=== PATIENT | male | born 1980 | race Caucasian/White ===

== ENCOUNTER 2018-10-26 19:39 | Emergency (ER) | payer OTHER ==
[2018-10-26] MEDS ORDERED: Ketorolac 10 MG Tab PO ONE (19:40)
--- NOTE | 2018-10-26 20:21 | EDM.PDOC ---
ED HPI GENERAL MEDICAL PROBLEM - General Chief Complaint: Upper Extremity Injury/Pain Stated Complaint: HURT HAND Time Seen by Provider: 10/26/18 20:16 Source of Information: Reports: Patient History Limitations: Reports: No Limitations - History of Present Illness INITIAL COMMENTS - FREE TEXT/NARRATIVE: Nelson is a 38-year-old male who complains of an injury to the left hand. He was closing up to store yesterday when the door closed on his left hand. He complains of throbbing pain,worse with any movement.Tylenol and ibuprofen have not been helpful. Left hand Pain Score (Numeric/FACES): 5 - Related Data Allergies Allergy/AdvReac Type Severity Reaction Status Date / Time No Known Allergies Allergy Verified 10/26/18 19:45 Home Meds: Home Meds NK [No Known Home Meds] 10/26/18 [History] Past Medical History Cardiovascular History: Reports: Other (See Below) Other Cardiovascular History: "concave chest", bradycardia at times Respiratory History: Reports: Asthma Social & Family History - Tobacco Use Smoking Status *Q: Current Every Day Smoker Years of Tobacco use: 17 Packs/Tins Daily: 1.5 - Caffeine Use Caffeine Use: Reports: Energy Drinks, Soda - Recreational Drug Use Recreational Drug Use: No Review of Systems - Review of Systems Review Of Systems: ROS reveals no pertinent complaints other than HPI. ED EXAM, GENERAL - Physical Exam Exam: See Below Free Text/Narrative:: There is moderate swelling of the middle and and pinky left distal phalanges. Severely decreased range of motion,with some ecchymosis of the volar aspect of both. Exam Limited By: No Limitations General Appearance: Alert, WD/WN, No Apparent Distress Course - Vital Signs Last Recorded V/S: Last Vital Signs Temp 97.9 F 10/26/18 19:45 Pulse 86 10/26/18 19:45 Resp 16 10/26/18 19:45 BP 142/89 H 10/26/18 19:45 Pulse Ox 97 10/26/18 19:45 - Orders/Labs/Meds Orders: Active Orders 24 hr Category Date Time Status Hand Comp Min 3V Lt [CR] Stat Exams 10/26/18 19:52 Taken Departure - Departure Time of Disposition: 20:19 Disposition: Home, Self-Care 01 Condition: Good Clinical Impression: Hand injury - Discharge Information Referrals: PCP,None [Primary Care Provider] - - Problem List & Annotations (1) Hand injury SNOMED Code(s): 444753178 Code(s): S69.90XA - UNSP INJURY OF UNSP WRIST, HAND AND FINGER(S), INIT ENCNTR Status: Acute Current Visit: Yes Qualifiers: Encounter type: initial encounter Laterality: left Qualified Code(s): S69.92XA - Unspecified injury of left wrist, hand and finger(s), initial encounter - Problem List Review Problem List Initiated/Reviewed/Updated: Yes - My Orders Last 24 Hours: My Active Orders 10/26/18 19:52 Hand Comp Min 3V Lt [CR] Stat - Assessment/Plan Last 24 Hours: My Active Orders 10/26/18 19:52 Hand Comp Min 3V Lt [CR] Stat Plan: I did an x-ray review the hand and this showed some tuft fracture of the distal phalanx of the pinky. The rest of the joints appeared intact with no dislocation or fracture. I recommended ice rest and I dispensed 10 mg of Toradol 4 times a day when necessary. I further recommended follow-up with the physician on Sunday next week
== END 2018-10-26 20:36 | disposition home or self-care (01) ==
LOC: FB.ED 19:39
DX: S60.032A Contusion of left middle finger without damage to nail, initial encounter (principal); S60.052A Contusion of left little finger without damage to nail, initial encounter; F17.210 Nicotine dependence, cigarettes, uncomplicated; W23.0XXA Caught, crushed, jammed, or pinched between moving objects, initial encounter
CPT/HCPCS: 73130; 99283; A9270

== ENCOUNTER 2020-03-07 23:50 | Emergency (ER) | payer SELFPAY ==
[~2020-03-07 23:50] MED LIST: Sodium Chloride 0.9% 1,000 ML IV SCH
[2020-03-07] MEDS ORDERED: Sodium Chloride 0.9% 10 ML Syringe FLUSH PRN (23:58)
[2020-03-07] MEDS ORDERED: Atropine/Diphenoxylate 0.025-2.5 MG Tab PO ONE (23:59)
--- NOTE | 2020-03-08 01:10 | EDM.PDOC ---
ED HPI GENERAL MEDICAL PROBLEM - General Chief Complaint: Gastrointestinal Problem Stated Complaint: WEAKNESS,DIARRHEA Time Seen by Provider: 03/07/20 23:55 Source of Information: Reports: Patient History Limitations: Reports: No Limitations - History of Present Illness INITIAL COMMENTS - FREE TEXT/NARRATIVE: Patient presented to the ED because of persistent diarrhea which is watery. He at least have 6 watery stools in a day and is felling weak. Denies any nausea or vomiting, no abdominal pain. There is no fever or chills. He works at the [employer] and was tested for Covid 2 days ago which was negative, - Related Data Allergies Allergy/AdvReac Type Severity Reaction Status Date / Time No Known Allergies Allergy Verified 10/26/18 19:45 Home Meds: Home Meds Diphenoxylate HCl/Atropine [Lomotil] 2 tab PO Q6H PRN #30 tablet 03/08/20 [Rx] Past Medical History Cardiovascular History: Reports: Other (See Below) Other Cardiovascular History: "concave chest", bradycardia at times Respiratory History: Reports: Asthma Social & Family History - Tobacco Use Tobacco Use Status *Q: Current Every Day Tobacco User Years of Tobacco use: 15 Packs/Tins Daily: 1 - Caffeine Use Caffeine Use: Reports: Energy Drinks, Soda ED ROS GENERAL - Review of Systems Review Of Systems: See Below Constitutional: Reports: Weakness HEENT: Reports: No Symptoms Respiratory: Reports: No Symptoms Cardiovascular: Reports: No Symptoms Endocrine: Reports: No Symptoms GI/Abdominal: Reports: Diarrhea. Denies: Nausea, Vomiting Musculoskeletal: Reports: No Symptoms, Neck Pain Skin: Reports: No Symptoms Neurological: Reports: No Symptoms Psychiatric: Reports: No Symptoms Hematologic/Lymphatic: Reports: No Symptoms ED EXAM, GI/ABD - Physical Exam Exam: See Below Exam Limited By: No Limitations General Appearance: Alert, No Apparent Distress Ears: Normal External Exam, Normal [place] Nose: Normal Inspection, Normal Mucosa Throat/Mouth: Normal Inspection, Normal Lips, Normal Teeth Head: Atraumatic, Normocephalic Neck: Normal Inspection, Supple, Non-Tender Respiratory/Chest: No Respiratory Distress, Lungs Clear, Normal Breath Sounds Cardiovascular: Normal Peripheral Pulses, Regular Rate, Rhythm, No Edema, No Gallop GI/Abdominal Exam: Soft, Non-Tender, Abnormal Bowel Sounds Skin Exam: Warm, Dry, Intact Course - Vital Signs Text/Narrative:: Labs reviewed with the patient NS 1 L bolus Lomotil 2 tablet po x1 - Orders/Labs/Meds Orders: Active Orders 24 hr Category Date Time Status Sodium Chloride 0.9% [Normal Saline] 1,000 ml Med 03/07/20 23:45 Active IV ASDIRECTED Sodium Chloride 0.9% [Saline Flush] Med 03/07/20 23:58 Active 10 ml FLUSH ASDIRECTED PRN Saline Lock Insert [OM.PC] Routine Oth 03/07/20 23:58 Ordered Medication Orders Sodium Chloride (Normal Saline) 1,000 mls @ 999 mls/hr IV ASDIRECTED YESSENIA Last Admin: 03/08/20 00:15 Dose: 999 mls/hr Documented by: BRENLOR Sodium Chloride (Saline Flush) 10 ml FLUSH ASDIRECTED PRN PRN Reason: Keep Vein Open Labs: Laboratory Tests 03/07/20 03/07/20 Range/Units 00:08 00:08 WBC 8.6 (4.5-12.0) X10-3/uL RBC 4.79 (4.30-5.75) x10(6)uL Hgb 16.0 (13.5-17.8) g/dL Hct 46.2 (30.0-51.3) % MCV 96.5 H (80-96) fL MCH 33.5 (27.7-33.6) pg MCHC 34.7 (32.2-35.4) g/dL RDW 11.7 (11.5-15.5) % Plt Count 244 (125-369) X10(3)uL MPV 7.4 (7.4-10.4) fL Neut % (Auto) 39.5 L (46-82) % Lymph % (Auto) 51.3 H (13-37) % [place] % (Auto) 6.9 (4-12) % Eos % (Auto) 2 (1.0-5.0) % Baso % (Auto) 1 (0-2) % Neut # (Auto) 3.4 (1.6-8.3) # Lymph # (Auto) 4.4 (0.6-5.0) # [place] # (Auto) 0.6 (0.0-1.3) # Eos # (Auto) 0.1 (0.0-0.8) # Baso # (Auto) 0.1 (0.0-0.2) # Sodium 138 (135-145) mmol/L Potassium 4.2 (3.5-5.3) mmol/L Chloride 99 L (100-110) mmol/L Carbon Dioxide 29 (21-32) mmol/L BUN 14 (7-18) mg/dL Creatinine 1.2 (0.70-1.30) mg/dL Est Cr Clr Drug Dosing TNP Estimated GFR (MDRD) > 60 (>60) BUN/Creatinine Ratio 11.7 (9-20) Glucose 184 H (80-116) mg/dL Calcium 9.5 (8.6-10.2) mg/dL Meds: Medications Generic Name Dose Route Start Last Admin Trade Name Freq PRN Reason Stop Dose Admin Sodium Chloride 1,000 mls @ 999 mls/hr 03/07/20 23:45 03/08/20 00:15 Normal Saline IV 999 mls/hr ASDIRECTED YESSENIA Administration Sodium Chloride 10 ml 03/07/20 23:58 Saline Flush FLUSH ASDIRECTED PRN Keep Vein Open Discontinued Medications Generic Name Dose Route Start Last Admin Trade Name Freq PRN Reason Stop Dose Admin Diphenoxylate HCl/Atropine 2 tab 03/07/20 23:59 03/08/20 00:33 Lomotil 0.025-2.5 Mg PO 03/08/20 00:00 2 tab ONETIME ONE Administration Departure - Departure Time of Disposition: 01:15 Disposition: Home, Self-Care 01 Condition: Good Clinical Impression: Gastroenteritis, Dehydration - Discharge Information Prescriptions: Diphenoxylate HCl/Atropine [Lomotil] 2 tab PO Q6H PRN #30 tablet PRN Reason: Diarrhea Referrals: PCP,None [Primary Care Provider] - Additional Instructions: please read discharge instructions on gastroenteritis and dehydration frequent hand washing increase oral fluids-drink at least 2-3 liters of water a day lomotil 2 tablets every 6 hours as needed for diarrhea follow up as needed Sepsis Event Note (ED) - Evaluation Sepsis Screening Result: No Definite Risk - My Orders Last 24 Hours: My Active Orders 03/07/20 23:45 Sodium Chloride 0.9% [Normal Saline] 1,000 ml IV ASDIRECTED 03/07/20 23:58 Sodium Chloride 0.9% [Saline Flush] 10 ml FLUSH ASDIRECTED PRN Saline Lock Insert [OM.PC] Routine - Assessment/Plan Last 24 Hours: My Active Orders 03/07/20 23:45 Sodium Chloride 0.9% [Normal Saline] 1,000 ml IV ASDIRECTED 03/07/20 23:58 Sodium Chloride 0.9% [Saline Flush] 10 ml FLUSH ASDIRECTED PRN Saline Lock Insert [OM.PC] Routine
== END 2020-03-08 01:40 | disposition home or self-care (01) ==
LOC: FB.ED 23:50
DX: K52.9 Noninfective gastroenteritis and colitis, unspecified (principal); E86.0 Dehydration; J45.909 Unspecified asthma, uncomplicated; F17.210 Nicotine dependence, cigarettes, uncomplicated
CPT/HCPCS: 36415; 80048; 85025; 99284; A9270; J7030

== ENCOUNTER 2020-04-08 04:11 | Emergency (ER) | payer SELFPAY ==
[2020-04-08] MEDS ORDERED: predniSONE 20 MG Tab PO ONE (04:12)
--- NOTE | 2020-04-08 04:43 | EDM.PDOC ---
ED HPI GENERAL MEDICAL PROBLEM - General Chief Complaint: Respiratory Problem Time Seen by Provider: 04/08/20 04:42 Source of Information: Reports: Patient History Limitations: Reports: No Limitations - History of Present Illness INITIAL COMMENTS - FREE TEXT/NARRATIVE: Nelson was brought by EMS after he complained of difficulty in Breathing. He has a h/o asthma,and ran out of his inhaler. He complained of wheezing and sob of sudden onset. No cough or fever. Nothing seemed to help.he was noted by the ambulance crew to be very anxious. He denies any chest pain. - Related Data Allergies Allergy/AdvReac Type Severity Reaction Status Date / Time No Known Allergies Allergy Verified 04/08/20 04:38 Home Meds: Home Meds . [Unable to Verify Home Med List] 04/08/20 [History] Past Medical History Cardiovascular History: Reports: Other (See Below) Other Cardiovascular History: "Concave chest". Bradycardia at times. Watching his BP. Respiratory History: Reports: Asthma, Other (See Below) Other Respiratory History: Uses an inhaler PRN. Social & Family History - Caffeine Use Caffeine Use: Reports: Energy Drinks, Soda ED ROS GENERAL - Review of Systems Review Of Systems: Comprehensive ROS is negative, except as noted in HPI. ED EXAM, GENERAL - Physical Exam Exam: See Below Exam Limited By: No Limitations General Appearance: Alert, Anxious Ears: Normal External Exam Nose: Normal Inspection Throat/Mouth: Normal Inspection Head: Atraumatic Respiratory/Chest: No Respiratory Distress, Lungs Clear, Normal Breath Sounds #1 Interpretation Rhythm: NSR [place]: Normal Course - Vital Signs Last Recorded V/S: Last Vital Signs Temp 98.3 F 04/08/20 04:20 Pulse 89 04/08/20 04:20 Resp 17 04/08/20 04:20 BP 133/85 04/08/20 04:20 Pulse Ox 100 04/08/20 04:20 - Orders/Labs/Meds Meds: Medications Discontinued Medications Generic Name Dose Route Start Last Admin Trade Name Freq PRN Reason Stop Dose Admin Prednisone 160 mg 04/08/20 04:12 Prednisone PO 04/08/20 04:13 .STK-MED ONE Departure - Departure Time of Disposition: 04:43 Disposition: Home, Self-Care 01 Condition: Good Clinical Impression: Exacerbation of asthma - Discharge Information Instructions: Generalized Anxiety Disorder, Adult, Panic Attack, Asthma Attack Referrals: PCP,None [Primary Care Provider] - Forms: ED Department Discharge Additional Instructions: Take Prednisone 1 tab 2 x a day. Establish a primary care provider so you can follow up and be able to refer you to a specialist in [place]. Call if you have any questions or come back to any ER if symptoms get acutely worse. Sepsis Event Note (ED) - Evaluation Sepsis Screening Result: No Definite Risk - Problem List & Annotations (1) Anxiety attack SNOMED Code(s): 571805795 Code(s): F41.0 - PANIC DISORDER [EPISODIC PAROXYSMAL ANXIETY] Status: Acute (2) Exacerbation of asthma SNOMED Code(s): 903146250 Code(s): J45.901 - UNSPECIFIED ASTHMA WITH (ACUTE) EXACERBATION Status: Acute Qualifiers: Asthma severity: moderate - Problem List Review Problem List Initiated/Reviewed/Updated: Yes - Assessment/Plan Plan: He was stable on arrival,except for anxiety. Normal EKG.Sats were 100% on RA. No wheezing on exam.I Dc'd him on Prednisone 20 mg bid. See PCP in a few days.He just recently moved to [facility].
== END 2020-04-08 05:19 | disposition home or self-care (01) ==
LOC: FB.ED 04:11
DX: J45.901 Unspecified asthma with (acute) exacerbation (principal)
CPT/HCPCS: 93005; 99283; 99284; J7512

== ENCOUNTER 2022-11-01 22:20 | Emergency (ER) | payer SELFPAY ==
[2022-11-01] MEDS ORDERED: EPINEPHrine 1:10,000 1 MG/10 ML Syringe IVPUSH STA ×4 (22:23→22:35)
[2022-11-01] MEDS ORDERED: Calcium Chloride 10% 1 GM/10 ML Syringe IVPUSH ONE (22:32)
[2022-11-02] MEDS ORDERED: Sodium Chloride 0.9% 1,000 ML IV ONE (06:52)
== END 2022-11-01 22:40 | disposition expired ==
LOC: EDBD 22:20 → MERGE 22:20 → FB.ED 22:20
DX: I46.9 Cardiac arrest, cause unspecified (principal); E11.9 Type 2 diabetes mellitus without complications
CPT/HCPCS: 82947; 92950; 96374; 99285-25; J0171; J7030